=== PATIENT | female | born 1990 | race American Indian/Alaskan Native ===

== ENCOUNTER 2020-06-01 23:51 | Emergency (ER) | payer SELFPAY ==
[2020-06-02] MEDS ORDERED: ACETAMINOPHEN 500 MG TAB PO ONE ×2 (00:40→03:08)
[2020-06-02] MEDS ORDERED: FAMOTIDINE 20 MG/2 ML INJ IV ONE ×2 (00:40→03:06)
[2020-06-02] MEDS ORDERED: ONDANSETRON 4 MG/2 ML INJ IV ONE (00:40)
[2020-06-02] MEDS ORDERED: SODIUM CHLORIDE 0.9% 1000 ML 1,000 ML IV ONE (00:40)
--- NOTE | 2020-06-02 00:44 | Emergency Department Report ---
ED Abdominal Pain HPI - General Chief Complaint: Abdominal Pain Stated Complaint: 13 WEEKS Source: patient Mode of arrival: Ambulatory Limitations: Physical Limitation - History of Present Illness Initial Comments: Patient is a A0 29-year-old -[place] female who is approximately 13 weeks gestation presents to the ED with complaint of acute onset persistent severe diffuse low abdominal pain with nausea and vomiting for the last 2 days, worse in the last 12 hours. Patient states that she has not been able to keep anything down because of worsening nausea and vomiting and pain. Patient denies dizziness, syncope, chest pain, shortness of breath, vaginal bleeding, vaginal discharge, dysuria, urinary frequency and urgency, low back pain, chest pain, shortness of breath, sore throat, fever and chills or headache. MD Complaint: abdominal pain (Diffuse lower abdominal pain), other (Nausea and vomiting) -: Sudden, days(s) (2) Location: suprapubic Radiation: suprapubic Migration to: no migration Severity: severe Severity scale (0 -10): 8 Quality: cramping, aching, sharp Consistency: constant Improves With: nothing Worsens With: nothing Context: other (13 weeks gestation) Associated Symptoms: denies other symptoms, nausea, vomiting, anorexia. denies: diarrhea, fever, chills, constipation, dysuria, hematemesis, hematochezia, melena, hematuria, syncope - Related Data Previous Rx's Medication Instructions Recorded Last Taken Type Famotidine [Pepcid] 20 mg PO BID #40 tablet 06/02/20 Unknown Rx Prochlorperazine Maleate 10 mg PO Q6H PRN #30 tablet 06/02/20 Unknown Rx [Compazine] Promethazine HCl [Phenergan SUPPOS] 25 mg RC Q6H PRN #20 supp.rect 06/02/20 Unknown Rx Allergies Allergy/AdvReac Type Severity Reaction Status Date / Time No Known Allergies Allergy Unverified 06/02/20 00:26 ED Review of Systems ROS: Stated complaint: 13 WEEKS Other details as noted in HPI Constitutional: malaise, weakness. denies: chills, fever Eyes: denies: eye pain, eye discharge, vision change ENT: denies: ear pain, throat pain, dental pain, congestion Respiratory: denies: cough, orthopnea, shortness of breath, wheezing Cardiovascular: denies: chest pain, palpitations Endocrine: no symptoms reported Gastrointestinal: abdominal pain (Suprapubic pain), nausea, vomiting. denies: diarrhea Genitourinary: denies: urgency, dysuria, frequency, discharge Musculoskeletal: denies: back pain, joint swelling, arthralgia Skin: denies: rash, lesions Neurological: denies: headache, weakness, paresthesias Psychiatric: denies: anxiety, depression Hematological/Lymphatic: denies: easy bleeding, easy bruising ED Past Medical Hx - Past Medical History Previous Medical History?: Yes Hx Asthma: Yes - Medications Home Medications: Home Medications Medication Instructions Recorded Confirmed Last Taken Type Famotidine [Pepcid] 20 mg PO BID #40 tablet 06/02/20 Unknown Rx Prochlorperazine Maleate 10 mg PO Q6H PRN #30 tablet 06/02/20 Unknown Rx [Compazine] Promethazine HCl [Phenergan SUPPOS] 25 mg RC Q6H PRN #20 supp.rect 06/02/20 Unknown Rx ED Physical Exam - General Limitations: Physical Limitation General appearance: alert, in no apparent distress - Head Head exam: Present: atraumatic, normocephalic, normal inspection - Eye Eye exam: Present: normal appearance, PERRL, EOMI Pupils: Present: normal accommodation - ENT ENT exam: Present: normal exam, normal orophraynx, mucous membranes moist, TM's normal bilaterally, normal external ear exam - Neck Neck exam: Present: normal inspection, full ROM - Respiratory Respiratory exam: Present: normal lung sounds bilaterally. Absent: respiratory distress, wheezes, rales, chest wall tenderness, accessory muscle use, decreased breath sounds - Cardiovascular Cardiovascular Exam: Present: regular rate, normal rhythm, normal heart sounds. Absent: systolic murmur, diastolic murmur, rubs, gallop - GI/Abdominal GI/Abdominal exam: Present: soft, tenderness (Palpable diffuse lower abdominal tenderness), normal bowel sounds. Absent: guarding, rebound, hyperactive bowel sounds, hypoactive bowel sounds, organomegaly - Extremities Exam Extremities exam: Present: normal inspection, full ROM, normal capillary refill - Back Exam Back exam: Present: normal inspection, full ROM. Absent: tenderness, CVA tenderness (L), muscle spasm, paraspinal tenderness, vertebral tenderness - Neurological Exam Neurological exam: Present: alert, oriented X3, CN II-XII intact, normal gait, reflexes normal - Psychiatric Psychiatric exam: Present: normal affect, normal mood - Skin Skin exam: Present: warm, dry, intact, normal color. Absent: rash ED Course Vital Signs 06/02/20 06/02/20 00:22 03:13 Temperature 98.5 F Pulse Rate 90 Respiratory 16 18 Rate Blood Pressure 123/75 O2 Sat by Pulse 99 Oximetry ED Medical Decision Making - Lab Data Result diagrams: 06/02/20 00:36 06/02/20 00:36 - Radiology Data Radiology results: report reviewed, image reviewed [facility] [address] [place] [address] Ultrasound Report Signed Patient: MEHREEN SEVERINO MR#: [id number] : 1990 Acct:[id number] Age/Sex: 29 / F ADM Date: 06/01/20 Loc: ED Attending Dr: Ordering Physician: MIKE POOLE Date of Service: 06/02/20 Procedure(s): US OB >= 14 weeks Fetus Accession Number(s): [id number] cc: MIKE POOLE OB Ultrasound HISTORY: lower abd pain. TECHNIQUE: Grayscale and color imaging performed. COMPARISON: None FINDINGS: Single viable intrauterine gestation with cephalic presentation and subjectively normal JERRY. Placenta is seen posteriorly. Cervix measures 3.2 cm in length. Heart rate is 159 bpm. Overall EGA is 14 weeks and 0 days by ultrasound compared to 13 weeks and 1 day clinically. Estimated delivery date is 12/01/2020. Anatomic survey was not performed. IMPRESSION: Single viable intrauterine gestation as above. Signer Name: Bola Nicole MD Signed: 06/02/2020 4:12 AM Workstation Name: [id number] Transcribed By: KEMAR Dictated By: Bola Nicole MD Electronically Authenticated By: Bola Nicole MD Signed Date/Time: 06/02/20411 DD/ 9 TD/TT: - Medical Decision Making This is a A0 29-year-old -[place] female who is approximately 13 weeks gestation presents to the ED with complaint of acute onset persistent severe diffuse low abdominal pain with nausea and vomiting for the last 2 days, worse in the last 12 hours. Patient states that she has not been able to keep anything down because of worsening nausea and vomiting and pain. In the ED, patient is alert and oriented x3 and is not in any distress but appears uncomfortable. Patient was treated in the ED with antiemetics, antacids and also given normal saline 1 L IV bolus x1. Patient was also treated with Tylenol after the nausea and vomiting was controlled. Lab test results were reviewed and are all nonactionable except for acute leukocytosis of 12,700. The rest of the lab test results are nonactionable. The pelvic ultrasound showed a single viable intrauterine gestation with cephalic presentation and subjectively normal JERRY. Placenta is seen posteriorly. Cervix measures 3.2 cm in length. Heart rate is 159 bpm. Overall EGA is 14 weeks and 0 days by ultrasound compared to 13 weeks and 1 day clinically. Estimated delivery date is 12/01/2020. On reevaluation, patient's nausea and vomiting is well controlled medications. Patient passed oral fluid challenge in the ED. Patient was therefore discharged home on medications for nausea and vomiting and was advised to maintain a clear liquid diet for 12 to 4 hours, drink plenty of fluids while taking medications for nausea and vomiting. Patient was advised to follow-up with [facility] physician in 3 to 5 days for reevaluation, and also advised to maintain a complete pelvic rest. Patient was advised return to the ED immediately if symptoms get worse. - Differential Diagnosis Dehydration; hyperemesis; UTI; ovarian cyst; muscle cramps; Critical care attestation.: If time is entered above; I have spent that time in minutes in the direct care of this critically ill patient, excluding procedure time. ED Disposition Clinical Impression: Hyperemesis gravidarum, Abdominal pain during in second trimester Disposition: DC-01 TO HOME OR SELFCARE Is pt being admited?: No Does the pt Need Aspirin: No Condition: Stable Instructions: Abdominal Pain (ED), Abdominal Pain During , [id number], Hyperemesis Gravidarum Additional Instructions: Lab test results were reviewed and are all nonactionable. The pelvic ultrasound showed a live single intrauterine of approximately 13 weeks and 1 day with a heart rate of 159 bpm, and no other acute abnormalities. Therefore maintain a complete pelvic rest, observe a clear liquid diet for 12 to 24 hours, drink plenty of fluids, take medication as needed for nausea and vomiting and pain. Follow-up with your [facility] physician in 3 to 5 days for reevaluation or return to the ED immediately if symptoms get worse. Prescriptions: Prochlorperazine Maleate [Compazine] 10 mg PO Q6H PRN #30 tablet PRN Reason: Nausea Famotidine [Pepcid] 20 mg PO BID #40 tablet Promethazine HCl [Phenergan SUPPOS] 25 mg RC Q6H PRN #20 supp.rect PRN Reason: Nausea Referrals: LETY RAINES MD [Staff Physician] - 3-5 Days Forms: Work/School Release Form(ED) Time of Disposition: 04:59 Print Language: DANISH
[2020-06-02 00:48] LABS: Basophils % (Auto) 0.1 % (0.0-1.8); Eosinophils # (Auto) 0.2 K/mm3 (0.0-0.4); Eosinophils % (Auto) 1.5 % (0.0-4.3); Hematocrit 33.5 % (30.3-42.9); Hemoglobin 11.4 gm/dl (10.1-14.3); Lymphocytes # (Auto) 3.4 K/mm3 (1.2-5.4); Lymphocytes % (Auto) 26.5 % (13.4-35.0); Mean Corpuscular HGB Conc 34 % (30-34); Mean Corpuscular Volume 88 fl (79-97); Monocytes # (Auto) 0.9 K/mm3 (0.0-0.8); Monocytes % (Auto) 6.9 % (0.0-7.3); Platelet Count 291 K/mm3 (140-440); Red Blood Count 3.79 M/mm3 (3.65-5.03); Red Cell Distribution Width 13.7 % (13.2-15.2)
[2020-06-02 01:09] LABS: Alanine Aminotransferase 9 units/L (7-56); Albumin 3.9 g/dL (3.9-5); Blood Urea Nitrogen 8 mg/dL (7-17); Calcium 8.7 mg/dL (8.4-10.2); Hemolysis Index 1
[2020-06-02 01:15] LABS: BUN/Creatinine Ratio 20
[2020-06-02] MEDS ORDERED: PROCHLORPERAZINE EDISYLATE 10 MG/2 ML VIAL IV ONE (01:40)
[2020-06-02] MEDS ORDERED: ONDANSETRON 4 MG/2 ML INJ ONE (03:06)
[2020-06-02 03:09] LABS: Bilirubin,Urine NEG (Negative); Color,Urine Yellow (Yellow)
[2020-06-02 03:10] LABS: Bacteria,Urine 1+ /HPF (Negative); Blood,Urine NEG (Negative); Mucus,Urine 3+ /HPF; Protein,Urine <15 mg/dL mg/dL (Negative); Urobilinogen,Urine < 2.0 mg/dL (<2.0)
--- NOTE | 2020-06-02 04:16 | Ultrasound Report ---
OB Ultrasound HISTORY: lower abd pain. TECHNIQUE: Grayscale and color imaging performed. COMPARISON: None FINDINGS: Single viable intrauterine gestation with cephalic presentation and subjectively normal JERRY . Placenta is seen posteriorly. Cervix measures 3.2 cm in length. Heart rate is 159 bpm. Overall EGA is 14 weeks and 0 days by ultrasound compared to 13 weeks and 1 day clinically. Estimated delivery da te is 12/01/2020. Anatomic survey was not performed. IMPRESSION: Single viable intrauterine gestation as above. Signer Name: Bola Nicole MD Signed: 06/02/2020 4:12 AM Workstation Name: [id number]
[2020-06-02 05:37] VITALS: BP 103/57
== END 2020-06-02 05:15 | disposition home or self-care (01) ==
LOC: ED 23:51
DX: O21.0 Mild hyperemesis gravidarum (principal); O26.892 Other specified pregnancy related conditions, second trimester; O99.512 Diseases of the respiratory system complicating pregnancy, second trimester; R10.9 Unspecified abdominal pain; J45.909 Unspecified asthma, uncomplicated; Z79.899 Other long term (current) drug therapy; Z3A.13 13 weeks gestation of pregnancy
CPT/HCPCS: 36415; 76805; 80053; 81001; 84702; 85025; 96361; 96374; 96375; 99284; J0780; J2405; J7030